=== PATIENT | female | born 1955 | race Caucasian/White ===

== ENCOUNTER → 2021-06-10 | Outpatient (CLI) | payer OTHER ==
[~2021-06-10] MED LIST: CARISOPRODOL 3350 MG PO; ESTRACE1 MG PO; KEFLEX500 MG PO; NEURONTIN 400400 M1 PO; SERTRALINE HCL50 MG PO; TIROSINT75 MCG PO; TRAMADOL 50 MG50 MG PO
== END ==
LOC: M.LAB 15:30
PROVIDERS: ATTEND Orthopaedic Surgery
DX: Z01.812 Encounter for preprocedural laboratory examination (principal); Z20.822 Contact with and (suspected) exposure to COVID-19